=== PATIENT | male | born 1970 | race Two or more races ===

== ENCOUNTER 2021-11-24 13:17 | Emergency (ER) | payer MEDICAID, OTHER ==
[~2021-11-24] VITALS: Ht 175.3 cm; Wt 99.8 kg
[2021-11-24 13:19] VITALS: BP 132/81
[2021-11-24] MEDS ORDERED: IBUP800T27 PO (15:07)
== END 2021-11-24 15:13 | disposition home or self-care (01) ==
LOC: ER 13:17
DX: S92.411A Displaced fracture of proximal phalanx of right great toe, initial encounter for closed fracture (principal); Z79.1 Long term (current) use of non-steroidal anti-inflammatories (NSAID); W22.8XXA Striking against or struck by other objects, initial encounter; Y93.89 Activity, other specified; Y92.89 Other specified places as the place of occurrence of the external cause; Y99.8 Other external cause status
CPT/HCPCS: 73630